=== PATIENT | female | born 1960 | race Caucasian/White ===

== ENCOUNTER 2021-07-18 10:03 | Day surgery (SDC) | payer BC, OTHER ==
[~2021-07-18 10:03] MED LIST: Lactated Ringers 1,000 ML IV SCH; Propofol 200 MG/20 ML SDV ONE; Sodium Chloride 0.9% 10 ML Syringe FLUSH PRN; Sodium Chloride 0.9% 2.5 ML Syringe FLUSH PRN; Sodium Chloride 0.9% 20 ML SDV IV PRN; fentaNYL 100 MCG/2 ML SDV ONE
[2021-07-18] MEDS ORDERED: Midazolam 1 MG/ML 2 ML SDV ONE (12:04)
== END 2021-07-18 13:10 | disposition home or self-care (01) ==
LOC: MW.SDS 10:03
PROVIDERS: ATTEND Surgery
DX: R19.4 Change in bowel habit (principal); F17.210 Nicotine dependence, cigarettes, uncomplicated; E03.9 Hypothyroidism, unspecified; Z79.890 Hormone replacement therapy; Z80.0 Family history of malignant neoplasm of digestive organs; Z79.899 Other long term (current) drug therapy; Z88.0 Allergy status to penicillin; Z79.82 Long term (current) use of aspirin; Z90.49 Acquired absence of other specified parts of digestive tract; Z98.890 Other specified postprocedural states
CPT/HCPCS: 45378; J2250; J2704; J3010; J7120; 00811

== ENCOUNTER 2021-10-19 13:01 | Emergency (ER) | payer BC, OTHER ==
[2021-10-19] MEDS ORDERED: Lidocaine 1% PF 2 ML SDV INJECT ONE (13:43)
[2021-10-19] MEDS ORDERED: Diphtheria,Pertussis(Acell),Tetanus Vaccine 0.5 ML Syringe IM ONE (13:43)
[2021-10-19] MEDS ORDERED: Bacitracin Oint 1 GM U/D Packet TOP ONE (13:44)
== END 2021-10-19 14:38 | disposition home or self-care (01) ==
LOC: MW.ED 13:01
DX: S67.193A Crushing injury of left middle finger, initial encounter (principal); S61.213A Laceration without foreign body of left middle finger without damage to nail, initial encounter; E03.9 Hypothyroidism, unspecified; Z88.0 Allergy status to penicillin; Z79.82 Long term (current) use of aspirin; Z79.899 Other long term (current) drug therapy; Z23 Encounter for immunization; Z86.16 Personal history of COVID-19; W20.8XXA Other cause of strike by thrown, projected or falling object, initial encounter
CPT/HCPCS: 12001; 73140-26-F2; 73140-F2; 90471; 90715; 99283-25